=== PATIENT | male | born 1995 | race Caucasian/White ===

== ENCOUNTER 2018-05-21 03:06 | Emergency (ER) | payer OTHER ==
[~2018-05-21] VITALS: Ht 180.3 cm; Wt 81.8 kg
[2018-05-21 03:14] VITALS: BP 135/87; PULSE 86; TEMP 97.3
[2018-05-21] MEDS ORDERED: CEPHALEXIN500 M1 PO (03:57)
== END 2018-05-21 04:11 | disposition home or self-care (01) ==
LOC: COL.ER 03:06
DX: S71.111A Laceration without foreign body, right thigh, initial encounter (principal); W26.0XXA Contact with knife, initial encounter; Y92.009 Unspecified place in unspecified non-institutional (private) residence as the place of occurrence of the external cause